=== PATIENT | male | born 1955 | race African-American/Black ===

== ENCOUNTER 2025-04-12 16:07 | Emergency (ER) | payer MEDICARE ==
[~2025-04-12] VITALS: Ht 182.9 cm; Wt 78.9 kg
[2025-04-12 16:23] VITALS: O2SAT 97
[2025-04-12] MEDS ORDERED: CEPH500T MT (18:54)
[2025-04-12 19:12] VITALS: BP 143/77; PULSE 75; RESP 16; TEMP 37.1; O2SAT 99
== END 2025-04-12 19:14 | disposition home or self-care (01) ==
LOC: ER 16:59
DX: L97.919 Non-pressure chronic ulcer of unspecified part of right lower leg with unspecified severity (principal); L97.929 Non-pressure chronic ulcer of unspecified part of left lower leg with unspecified severity; Z98.890 Other specified postprocedural states; Z88.8 Allergy status to other drugs, medicaments and biological substances; Z88.1 Allergy status to other antibiotic agents
CPT/HCPCS: 99281; 99282; 99283

== ENCOUNTER 2025-05-03 07:14 | Emergency (ER) | payer MEDICARE ==
[~2025-05-03] VITALS: Ht 182.9 cm; Wt 82.0 kg
[~2025-05-03 07:14] MED LIST: CEPH500T MT
[2025-05-03 07:25] VITALS: TEMP 36.8; O2SAT 98
[2025-05-03] MEDS: ACETAMINOPHEN 325MG TABLET PO ONE (07:54)
[2025-05-03 09:52] VITALS: BP 169/88; PULSE 65; RESP 16; O2SAT 96
== END 2025-05-03 09:56 | disposition home or self-care (01) ==
LOC: ER 07:14
DX: R51.9 Headache, unspecified (principal); M54.2 Cervicalgia; M25.521 Pain in right elbow; M25.572 Pain in left ankle and joints of left foot; M25.562 Pain in left knee; I10 Essential (primary) hypertension; Z88.8 Allergy status to other drugs, medicaments and biological substances; Z88.1 Allergy status to other antibiotic agents; Z98.890 Other specified postprocedural states; W18.39XA Other fall on same level, initial encounter; Y04.0XXA Assault by unarmed brawl or fight, initial encounter; Y93.89 Activity, other specified; Y92.89 Other specified places as the place of occurrence of the external cause; Y99.8 Other external cause status
CPT/HCPCS: 73080; 73560; 73600; 99284